=== PATIENT | male | born 1965 | race Caucasian/White ===

== ENCOUNTER 2022-02-02 21:34 | Inpatient (IN) | payer OTHER ==
[~2022-02-02] VITALS: Ht 177.8 cm; Wt 56.6 kg
--- NOTE | 2022-02-02 21:15 | NUR ---
ASSUMED CARE PATIENT ARRIVED TO ICU 3 FROM [facility]. PATIENT IS ALERT AND ANSWERS QUESTIONS APPROPRIATELY. ABLE TO SELF TRANSFER TO BED FROM [facility]. NS INF @ 250ML/HR, COMPLETED UPON ARRIVAL. INSULIN INF @ 5 UNITS/HR. DR. CHAUDHARY AND DR. MANDUJANO TO BEDSIDE SHORTLY AFTER ARRIVAL.
--- NOTE | 2022-02-02 22:00 | NUR ---
SUICIDE THOUGHTS PATIENT STATES THAT HE IS HAVING SUICIDAL THOUGHTS AND HAS A PLAN-REFUSES TO TELL STAFF WHAT THE PLAN IS. STATES HE HAS ATTEMPTED SUICIDE IN THE PAST. CHARGE NURSE NOTIFIED.
[2022-02-02 22:44] LABS: Anion Gap 19 mmol/L (6-16); Blood Urea Nitrogen 34 mg/dL (8-24); Bun/Creatinine Ratio 28.3 (12.0-20.0); CO2, Blood 12 mmol/L (21-32); Calcium, Blood 8.2 mg/dL (8.5-10.1); Chloride, Blood 111 mmol/L (98-108); Glomerular Filtration Rate >60 (60-); Glucose, Blood 355 mg/dL (70-99); Potassium, Blood 4.1 mmol/L (3.5-5.5); Sodium, Blood 142 mmol/L (136-145)
[2022-02-03 02:09] LABS: BASOPHILS ABSOLUTE AUTO 0.09 K/mm3 (0.00-0.23); BASOPHILS PERCENT AUTO 1 % (0-2); EOSINOPHILS PERCENT AUTO 0 % (0-6); Hematocrit 38.2 % (37.0-53.0); Hemoglobin 12.5 g/dL (13.5-17.5); IMMATURE GRAN ABSOLUTE AUTO 0.14 K/mm3 (0.00-0.10); IMMATURE GRAN PERCENT AUTO 1 % (0-1); LYMPHOCYTES ABSOLUTE AUTO 2.59 K/mm3 (0.84-5.20); LYMPHOCYTES PERCENT AUTO 15 % (21-46); MONOCYTES ABSOLUTE AUTO 1.34 K/mm3 (0.16-1.47); MONOCYTES PERCENT AUTO 8 % (4-13); Mean Corpuscular HGB 30.4 pg (26.0-34.0); Mean Corpuscular HGB Conc 32.7 g/dL (31.5-36.5); Mean Corpuscular Volume 93 fL (80-100); Mean Platelet Volume 9.9 fL (9.1-12.4); NEUTROPHILS PERCENT AUTO 76 % (41-73); Platelet Count 274 K/mm3 (150-400); RDW Coefficient Variation 12.8 % (11.7-14.2); RDW Standard Deviation 43.9 fL (35.1-46.3); Red Blood Cell Count 4.11 M/mm3 (4.30-5.90); White Blood Cell Count 17.16 K/mm3 (4.00-11.30)
[2022-02-03 02:23] LABS: Anion Gap 10 mmol/L (6-16); Blood Urea Nitrogen 29 mg/dL (8-24); Bun/Creatinine Ratio 29.4 (12.0-20.0); CO2, Blood 20 mmol/L (21-32); Calcium, Blood 8.5 mg/dL (8.5-10.1); Chloride, Blood 116 mmol/L (98-108); Creatinine, Blood 0.99 mg/dL (0.60-1.20); Glomerular Filtration Rate >60 (60-); Glucose, Blood 218 mg/dL (70-99); Potassium, Blood 3.6 mmol/L (3.5-5.5); Sodium, Blood 146 mmol/L (136-145)
--- NOTE | 2022-02-03 05:11 | NUR ---
SHIFT SUMMARY PATIENT SLEPT THROUGH MOST OF SHIFT. CIWA SCORES REMAINED LOW AND NO PRN ATIVAN OR LIBRIUM NEEDED. PATIENT C/O MILD ABD PAIN AND NO NAUSEA. USED URINAL ONCE AND WAS ABLE TO DEHORNER ROOM TO USE. USED CALL LIGHT APPROPRIATELY. CBG'S NOW DOWN TO 160'S-170'S-INSULIN GTT @ 1 UNIT/HR AND D5 1/2 NS @ 150ML/HR. NO OTHER CHANGES DURING SHIFT.
[2022-02-03 06:53] LABS: Anion Gap 8 mmol/L (6-16); Blood Urea Nitrogen 24 mg/dL (8-24); Bun/Creatinine Ratio 30.7 (12.0-20.0); CO2, Blood 21 mmol/L (21-32); Chloride, Blood 115 mmol/L (98-108); Creatinine, Blood 0.78 mg/dL (0.60-1.20); Glomerular Filtration Rate >60 (60-); Glucose, Blood 186 mg/dL (70-99); Potassium, Blood 3.4 mmol/L (3.5-5.5); Sodium, Blood 144 mmol/L (136-145)
--- NOTE | 2022-02-03 08:00 | NUR ---
PT A&OX4. DENIES PAIN OR NAUSEA. PT DENIES SI THIS AM. PT ASKED IF HE WOULD CONSIDER TELE-PSYCH EVAL. PT STATES "NO I DON'T NEED IT." PT STATES THAT HE WILL TELL STAFF IF HE BEGINS TO HAVE THOUGHTS OF SUICIDE. PT IS CURRENTLY CONSIDERED HIGH RISK AND 1:[address] CONTRERAS AWARE THAT PT NOT CURRENTLY SUICIDAL. WILL DISCUSS CHANGE IN RISK WITH HER DURING ROUNDING. ECG SHOWS SR WITH ST DEPRESSION. BP STABLE. LUNGS CLEAR AND NO NOTED SOB. SATS>90% ON RA. ABDOMEN SLIGHTLY TENDER WITH PALPATION AND BT'S HYPOACTIVE. PT DENIES ABDOMINAL PAIN AT REST. PT DENIES NEED TO VOID OR HAVE BM. HE IS ABLE TO GET UP WITH STANDBY ASSIST TO BRP. 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 HE DOES POSITION HIMSELF IN BED. CBG 181-PT GIVEN LANTUS 15 UNITS SQ AND INSULIN DRIP CONTINUES @ 1 UNIT/HR-WILL DISCONTINUE IV INSULIN 1 HOUR AFTER SC DOSE GIVEN.
--- NOTE | 2022-02-03 11:16 | NUR ---
SUICIDE PRECAUTIONS LIFTED AND PSYCH CONSULT DISCONTINUED.
[2022-02-03] MEDS ORDERED: ABILIFY MYCITE5 M2 PO (11:36)
[2022-02-03] MEDS ORDERED: ELIQUIS5 M2 PO (11:36)
[2022-02-03] MEDS ORDERED: TRAM50 PO (11:37)
[2022-02-03] MEDS ORDERED: TRAZ50 PO (11:39)
[2022-02-03] MEDS ORDERED: LANTUS SOL100 UNIT/1 SC (11:39)
[2022-02-03] MEDS ORDERED: IBUP800 PO (11:40)
[2022-02-03] MEDS ORDERED: ALPRAZOLAM2 M1 PO (11:40)
[2022-02-03] MEDS ORDERED: Percocet 5-3251 EACH PO (11:42)
[2022-02-03] MEDS ORDERED: HUMALOG100 UNIT/1 SC (11:47)
[2022-02-03] MEDS ORDERED: FURO40 PO (11:49)
--- NOTE | 2022-02-03 12:00 | NUR ---
PT MEDICAL FLOOR STATUS. NO NOTED DISTRESS. PT TOLERATING FULL LIQUID DIET WELL. CBG 229 COVERED WITH 4 UNITS/SLIDING SCALE-SEE EMAR.
--- NOTE | 2022-02-03 12:45 | NUR ---
NO ACUTE CHANGES. PT DENIES COMPLAINTS. REPORT PHONED TO MENDEZ SWEENEY IN PREP TO TRANSFER PT TO ROOM 310.
--- NOTE | 2022-02-03 12:58 | NUR ---
PATIENT TRANSFERRED FROM ICU. ORIENTED TO ROOM AND CALL LIGHT. IV FLUIDS RESTARTED. BED IN LOW POSITION.
--- NOTE | 2022-02-03 13:11 | NUR ---
PATIENT REPORTS THAT HE FEELS NAUSEOUS AND HAS SOME PAIN IN HIS UPPER ABDOMEN. PT WAS PROVIDED WITH AN EMESIS BAG TO KEEP NEARBY.
--- NOTE | 2022-02-03 16:58 | NUR ---
PT REQUESTING HIS HOME MEDICATION XANAX 1 MG NEEDED DAILY FOR REPORTED SYMPTOMS OF ANXIETY. HE IS ALSO REPORTING A PAIN OF 6/10 IN ABD WHICH HE REPORTS MAY BE CONTRIBUTING TO HIS ANXIETY. DR. CONTRERAS NOTIFIED OF SYMPTOMS AND PT REQUEST AND ORDER RECEIVED TO DC IV LORAZEPAMS, IV MORPHINE, START TRAMADOL 50 MG PO BID PRN FOR PAIN AND ALPRAZOLAM 1 MG PO DAILY NEEDED FOR ANXIETY. ORDERS PROCESSED. DR. BURNS CONTINUE CIWA THROUGH THE NIGHT.
--- NOTE | 2022-02-03 17:25 | NUR ---
SHIFT SUMMARY: PT TRANSFERRED TO MEDICAL FLOOR FROM ICU. PT WAS ADMITTED DUE TO DKA, PANCREATITIS, AND SI. PT'S SI PRECAUTIONS HAVE SINCE BEEN REMOVED. PER ICU, PT WAS ON TELE, BUT THAT HAS SINCE BEEN DC'D WELL. THE PATIENT HAS NS WITH KCL RUNNING AT 125 ML/HR. HE COMPLAINED OF SOME ANXIETY AND SAYS HE NORMALLY TAKES XANAX AT HOME. WAS CALLED AND AND ORDER WAS PLACED FOR THIS. HE WAS GIVEN THE XANAX, WELL TRAMADOL D/T SOME ABD PAIN. HE HAS BEEN RESTING COMFORTABLY IN HIS ROOM. PT IS INDEPENDENT. BED IN LOW POSITION AND CALL LIGHT WITHIN REACH. WILL GIVE REPORT TO NIGHT NURSE.
[2022-02-04 05:21] LABS: Hematocrit 31.1 % (37.0-53.0); Hemoglobin 10.3 g/dL (13.5-17.5); Mean Corpuscular HGB 30.7 pg (26.0-34.0); Mean Corpuscular HGB Conc 33.1 g/dL (31.5-36.5); Mean Corpuscular Volume 93 fL (80-100); Mean Platelet Volume 10.4 fL (9.1-12.4); Platelet Count 187 K/mm3 (150-400); RDW Coefficient Variation 13.1 % (11.7-14.2); Red Blood Cell Count 3.36 M/mm3 (4.30-5.90); White Blood Cell Count 9.21 K/mm3 (4.00-11.30)
[2022-02-04 05:44] LABS: Albumin, Blood 2.3 g/dL (3.4-5.0); Anion Gap 5 mmol/L (6-16); Blood Urea Nitrogen 9 mg/dL (8-24); Bun/Creatinine Ratio 14.5 (12.0-20.0); CO2, Blood 21 mmol/L (21-32); Calcium, Blood 7.8 mg/dL (8.5-10.1); Chloride, Blood 114 mmol/L (98-108); Creatinine, Blood 0.62 mg/dL (0.60-1.20); Glomerular Filtration Rate >60 (60-); Glucose, Blood 251 mg/dL (70-99); Phosphorus, Blood 1.3 mg/dL (2.5-4.9); Potassium, Blood 3.7 mmol/L (3.5-5.5); Sodium, Blood 140 mmol/L (136-145)
--- NOTE | 2022-02-04 06:29 | NUR ---
SHIFT SUMMARY: A/OX4, ADLIB IN ROOM AND INDEPENDENT ADL'S. INCREASED DROWSINESS THROUGHOUT SHIFT, RESPONDING TO VERBAL STIMULI. CIWA'S REMAINED LESS THAN 8 THROUGHOUT THE NIGHT. NO PAIN REPORTED THROUGHOUT THE NIGHT. BED IN LOW POSITION, CALL KELLY IN REACH.
--- NOTE | 2022-02-04 15:39 | NUR ---
DISCHARGE SUMMARY: PT A/O X 4 IND AT TIME OF DISCHARGE. PT DENIES SUICIDAL IDEATION. DISCUSSED DISCHARGE INSTRUCTIONS MEDICATION REGIMEN WITH PT. PT WAS WORRIED ABOUT DRIVING HOME WITH TAKING INSULIN GLARGINE 50 UNITS THIS AM HE DOES NOT USUALLY TAKE SUCH A HIGH DOSE. CBG TAKEN PRIOR TO LEAVING AND WAS 222. ASSISTED PT WITH PACKING BELONGINGS AND SENT PT HOME WITH ORANGE JUICE AND CHEESE STICK DUE TO LONG DRIVE BACK TO [place]. PT VU OVER INSTRUCTIONS. [facility] SON.
== END 2022-02-04 15:10 | disposition home or self-care (01) | DRG 637 ==
LOC: ICUE 21:34 → MEDS 02-03 12:55
PROVIDERS: Family Medicine; Internal Medicine; ADMIT Family Medicine
DX: E11.10 Type 2 diabetes mellitus with ketoacidosis without coma (principal); K85.20 Alcohol induced acute pancreatitis without necrosis or infection; N28.0 Ischemia and infarction of kidney; R45.851 Suicidal ideations; Z66 Do not resuscitate; E87.6 Hypokalemia; E83.39 Other disorders of phosphorus metabolism; F10.21 Alcohol dependence, in remission; D72.829 Elevated white blood cell count, unspecified; F17.210 Nicotine dependence, cigarettes, uncomplicated; E11.40 Type 2 diabetes mellitus with diabetic neuropathy, unspecified; Z79.01 Long term (current) use of anticoagulants; Z79.4 Long term (current) use of insulin; Z83.3 Family history of diabetes mellitus; F32.A Depression, unspecified; F41.9 Anxiety disorder, unspecified; Z86.718 Personal history of other venous thrombosis and embolism
CPT/HCPCS: 36415; 80048; 80069; 82010; 82947; 83036; 83690; 85025; 85027; A9270; C9113; J1650; J1815; J3480; J7042; J7060